=== PATIENT | female | born 1995 | race African-American/Black ===

== ENCOUNTER 2017-04-26 16:21 | Emergency (ER) | payer OTHER ==
[2017-04-26 16:28] VITALS: BP 120/80; BMI 29.4
--- NOTE | 2017-04-26 17:58 | DR.GENAD ---
HPI - PCP Primary Care Physician: HERI - HPI Comment HPI Comment: PAIN ASSOCIATED WITH NAUSEA AND VOMITING. HAD LOOSE STOOL NONE SINCE YESTERDAY. NO FEVER OR DYSURIA. - Complaint/Symptoms Chief Complaint Doctors Comments: ABDOMINAL PAIN TIMES 3 DAYS. Chief Complaint:: "STOMACH HURTING. EVERY THING I EAT OR DRINK I VOMIT OR POOP IT OUT" Self Treatment fo Chief Complaint: PLENTY OF FLUIDS - Nurses notes reviewed Nurses Notes Review: Yes - Source History Provided: Patient - Mode of Arrival Mode of Arrival: Ambulatory - Timing Onset of Chief Complaint: 04/23/17 Came on: Suddenly - Duration Duration: Constant Duration: Days - Severity Severity: Moderate PMH - PMH Past Medical History: No Past Medical History: Headaches Past Surgical History: No Surgical History: Tonsillectomy - Family History History of Family Medical Conditions: Yes Family Medical History: Diabetes Mellitus, Hypertension - Social History Does any household member use tobacco: No Alcohol Use: None Do you use any recreational Drugs:: No Lives With: Alone Lives Where: Home - infectious screening In the last 2 months have you had wt loss of >10#?: NO Have you had fever, night sweats or hemotysis?: No Have you traveled outside the country in the last 6 months?: No Isolation: Standard ROS - Review of Systems Constitutional: Weakness, Fatigue Eyes: No Symptoms Reported. negative: Eye Pain, Discharge ENTM: No Symptoms Reported Respiratoy: No Symptoms Reported Cardiovascular: No Symptoms Reported Gastrointestinal/Abdominal: Abdominal Pain, Diarrhea, Nausea, Vomiting Genitourinary: No Symptoms Reported. negative: Dysuria, Frequency, Hematuria Neurological: Weakness, Dizziness Musculoskeletal: Muscle Pain Integumentary: No Symptoms Reported Hematologic/Lymphatic: No Symptoms Reported Endocrine: No Symptoms Reported All Other Systems: Reviewed and Negative PE - Vital Signs Vitals: Temperature 98.6 F Pulse Rate 110 Respiratory Rate 20 Blood Pressure 120/80 O2 Sat by Pulse Oximetry 100 - General Limitations: No Limitations General Appearance: Alert - Head Head Exam: Normal Inspection - Eyes Eye exam: Normal Appearance, PERRL, EOMI - ENT ENT Exam: Normal External Ear Exam External Ear Exam: Normal External Inspection TM/Canal Exam: Bilateral Normal Nose Exam: Normal Nose Exam Mouth Exam: Normal Inspection Throat Exam: Normal Inspection - Neck Neck Exam: Normal Inspection - Chest Chest Inspection: Symmetric Chest Wall Rise - Respiratory Respiratory Exam: Normal Lung Sounds Bilat Respiratory Exam: Bilateral Clear to Auscultation - Cardiovascular Cardiovascular Exam: Regular Rate, Normal Rhythm, Normal Heart Sounds - Abdominal Exam Abdominal Exam: Normal Bowel Sounds, Soft, Tenderness Abdominal Tenderness: RLQ, LLQ, Suprapubic, Moderate - Extremities Extremities Exam: Normal Inspection - Back Back Exam: Normal Inspection - Neurologic Neurological Exam: Alert, Oriented X3, CN II-XII Intact, Normal Gait, Reflexes Normal. negative: Motor Sensory Deficit - Psychiatric Psychiatric Exam: Normal Affect, Normal Mood - Skin Skin Exam: Normal Color MDM - Differential Diagnosis Differential Diagnosis: ABDOMINAL PAIN Course - Treatment Treatment: SEE ORDERS. PREG TEST POSITIVE. OB US 33 WEEKS UNKNOWN TO PATIENT. OB EVALUATED AND DISCHARGE PATIENT HOME. - Consultation Consultation Comments: OB CONSULT. OB NURSE IN ED EVALUATING PATIENT. - Education/Counseling Education/Counseling: Patient, Education Educated On: Diagnosis ROR - Labs Reviewed Laboratory Results Reviewed?: Yes Result Diagrams: 04/26/17 18:30 04/26/17 18:30 Laboratory: WBC 7.7 X10^3/uL (3.6-10.0) 04/26/17 18:30 RBC 4.47 X10^6/uL (3.5-5.4) 04/26/17 18:30 Hgb 13.4 g/dL (12.0-16.0) 04/26/17 18:30 Hct 38.6 % (36.0-47.0) 04/26/17 18:30 MCV 86.5 fL (80.0-100.0) 04/26/17 18:30 MCH 29.9 pg (27.0-34.0) 04/26/17 18:30 MCHC 34.6 g/dL (33.0-35.0) 04/26/17 18:30 RDW 13.3 % (11.6-16.5) 04/26/17 18:30 Plt Count 256 X10^3/uL (150.0-450.0) 04/26/17 18:30 MPV 8.2 fL (7.4-11.0) 04/26/17 18:30 Neut % 76.3 % (42.0-75.0) H 04/26/17 18:30 Lymph % 10.7 % (21.0-51.0) L 04/26/17 18:30 Baldwin % 12.4 % (0.0-13.0) 04/26/17 18:30 Eos % 0.4 % (0.9-2.9) L 04/26/17 18:30 Baso % 0.2 % (0.2-1.0) 04/26/17 18:30 Neut # 5.9 x10^3/uL (2.2-4.8) H 04/26/17 18:30 Lymph # 0.8 X10^3/uL (1.3-2.9) L 04/26/17 18:30 Baldwin # 1.0 x10^3/uL (0.3-0.8) H 04/26/17 18:30 Eos # 0.0 x10^3/uL (0.0-0.2) 04/26/17 18:30 Baso # 0.0 X10^3/uL (0.0-0.1) 04/26/17 18:30 Absolute Nucleated RBC 0.1 /100WBC 04/26/17 18:30 INR Target Range - 04/26/17 18:30 INR 1.01 (0.8-1.3) 04/26/17 18:30 PTT 28.9 SECONDS (22.9-36.5) 04/26/17 18:30 PTT Comment - 04/26/17 18:30 Fibrinogen 496 mg/dL (239-489) H 04/26/17 18:30 Sodium 137 mmol/L (136-145) 04/26/17 18:30 Corrected Sodium TNP 04/26/17 18:30 Potassium 3.2 mmol/L (3.5-5.1) L 04/26/17 18:30 Chloride 105 mmol/L (98-107) 04/26/17 18:30 Carbon Dioxide 21.7 mmol/L (21-32) 04/26/17 18:30 BUN 8 mg/dL (7-18) 04/26/17 18:30 Creatinine 0.67 mg/dL (0.55-1.02) 04/26/17 18:30 Est GFR (MDRD) Af Amer > 60 (>60) 04/26/17 18:30 Est GFR (MDRD) Non-Af > 60 (>60) 04/26/17 18:30 Glucose 80 mg/dL (65-99) 04/26/17 18:30 Uric Acid 6.6 mg/dL (2.6-6.0) H 04/26/17 18:30 Calcium 9.1 mg/dL (8.5-10.1) 04/26/17 18:30 Corrected Calcium 10.1 mg/dL (8.5-10.1) 04/26/17 18:30 Total Bilirubin 0.50 mg/dL (0.2-1.0) 04/26/17 18:30 AST 87 Units/L (15-37) H 04/26/17 18:30 ALT 94 Units/L (12-78) H 04/26/17 18:30 Alkaline Phosphatase 167 Units/L (46-116) H 04/26/17 18:30 Total Protein 7.3 g/dL (6.4-8.2) 04/26/17 18:30 Albumin 2.8 g/dL (3.4-5.0) L 04/26/17 18:30 Globulin 4.5 g/dL (2.5-4.5) 04/26/17 18:30 Albumin/Globulin Ratio 0.6 Ratio (1.1-2.1) L 04/26/17 18:30 Amylase 50 Units/L (25-115) 04/26/17 18:30 Lipase 198 Units/L (73-393) 04/26/17 18:30 HCG, Qual Positive >10 mIU/mL 04/26/17 18:30 HCG, Quant 10908 mIU/mL (0-6) H 04/26/17 18:30 Specimen Type Clean catch urine 04/26/17 21:50 Urine Color Yeimy (YELLOW) 04/26/17 21:50 Urine Appearance Hazy (CLEAR) 04/26/17 21:50 Urine pH 6.0 (5.0 - 8.0) 04/26/17 21:50 Ur Specific [place] 1.025 (1.000-1.030) 04/26/17 21:50 Urine Protein 2+ (NEGATIVE) 04/26/17 21:50 Urine Glucose (UA) Negative (NEGATIVE) 04/26/17 21:50 Urine Ketones 4+ (NEGATIVE) 04/26/17 21:50 Urine Occult Blood 1+ (NEGATIVE) 04/26/17 21:50 Urine Nitrite Negative (NEGATIVE) 04/26/17 21:50 Urine Bilirubin 1+ (NEGATIVE) 04/26/17 21:50 Urine Urobilinogen 3+ (NORMAL) 04/26/17 21:50 Ur Leukocyte Esterase 3+ (NEGATIVE) 04/26/17 21:50 Urine RBC 2-6 /HPF (NEGATIVE) 04/26/17 21:50 Urine WBC 2-6 /HPF (NEGATIVE) 04/26/17 21:50 Ur Squamous Epith Cells Numerous /HPF (NEGATIVE) 04/26/17 21:50 Calcium Oxalate Crystal Moderate /HPF (NEGATIVE) 04/26/17 21:50 Urine Bacteria 1+ /HPF (NEGATIVE) 04/26/17 21:50 Ur Culture Indicated? No/not indicated 04/26/17 21:50 H. pylori IgG Antibody Negative (NEGATIVE) 04/26/17 18:30 - XRAY XRAY Interpreted by: Radiologist XRAY Findings: REPORT DISCUSS WITH PATIENT. - Diagnosis Discharge Problem: Abdominal pain, Third trimester - Discharge Plan Disposition: HOME, SELF-CARE Condition: Stable Prescriptions: Promethazine HCl [PHENERGAN TAB 25 MG *] 25 mg PO Q6H PRN #20 tab PRN Reason: Nausea/Vomiting - Follow ups/Referrals Follow ups/Referrals: JUSTINE SUMNER [Primary Care Provider] - 3 days - Instructions Instructions: Third Trimester of , [id number] Additional Instructions: FOLLOW UP WITH OBGYN MARCUS. RETURN TO ER IF CONTRACTIONS, BLEEDING OR RUPTURE OF MEMBRANES HAPPENS.
[2017-04-26 18:43] LABS: BASOPHILS % (AUTO) 0.2 % (0.2-1.0); EOSINOPHILS % (AUTO) 0.4 % (0.9-2.9); HEMATOCRIT 38.6 % (36.0-47.0); HEMOGLOBIN 13.4 g/dL (12.0-16.0); LYMPHOCYTES # (AUTO) 0.8 X10^3/uL (1.3-2.9); LYMPHOCYTES % (AUTO) 10.7 % (21.0-51.0); MEAN CORPUSCULAR HEMOGLOBIN 29.9 pg (27.0-34.0); MEAN CORPUSCULAR HGB CONC 34.6 g/dL (33.0-35.0); MEAN CORPUSCULAR VOLUME 86.5 fL (80.0-100.0); MEAN PLATELET VOLUME 8.2 fL (7.4-11.0); MONOCYTES % (AUTO) 12.4 % (0.0-13.0); NEUTROPHILS # (AUTO) 5.9 x10^3/uL (2.2-4.8); NEUTROPHILS % (AUTO) 76.3 % (42.0-75.0); PLATELET COUNT 256 X10^3/uL (150.0-450.0); RED BLOOD COUNT 4.47 X10^6/uL (3.5-5.4); RED CELL DISTRIBUTION WIDTH 13.3 % (11.6-16.5); WHITE BLOOD COUNT 7.7 X10^3/uL (3.6-10.0)
[2017-04-26 18:49] LABS: SERUM PREGNANCY TEST, QUAL POSITIVE >10 mIU/mL
[2017-04-26 18:55] LABS: ALANINE AMINOTRANSFERASE 94 Units/L (12-78); ALBUMIN 2.8 g/dL (3.4-5.0); ALKALINE PHOSPHATASE 167 Units/L (46-116); AMYLASE 50 Units/L (25-115); ASPARTATE AMINO TRANSFERASE 87 Units/L (15-37); BLOOD UREA NITROGEN 8 mg/dL (7-18); CALCIUM 9.1 mg/dL (8.5-10.1); CARBON DIOXIDE 21.7 mmol/L (21-32); CHLORIDE 105 mmol/L (98-107); COR CA(FOR HYPOALB) 10.1 mg/dL (8.5-10.1); CREATININE 0.67 mg/dL (0.55-1.02); LIPASE 198 Units/L (73-393); SODIUM 137 mmol/L (136-145); TOTAL PROTEIN 7.3 g/dL (6.4-8.2); eGFR BLACK RACES > 60 (>60); eGFR NON BLACK RACES > 60 (>60)
--- NOTE | 2017-04-26 22:07 | US ---
Exam: Transabdominal pelvic ultrasound History: Pelvic pain, Comparison: No prior ultrasound for comparison Technique: Grayscale, color, and power Doppler imaging of the pelvis was performed using a transabdom inal approach. Findings: There is a single intrauterine fetus. heart rate is 146 beats per min. Estimated fet al weight is 2361 g. Estimated gestational age is 33 weeks 6 days. No hemorrhage. No abnormal mass or fluid collection. Conclusion: Normal appearing single intrauterine fetus. Reported By:
[2017-04-26 22:14] LABS: BILIRUBIN,URINE 1+ (NEGATIVE); BLOOD/HEMOGLOBIN,URINE 1+ (NEGATIVE); GLUCOSE, URINE NEGATIVE (NEGATIVE); KETONES,URINE 4+ (NEGATIVE); LEUKOCYTE ESTERASE ,URINE 3+ (NEGATIVE); NITRITES,URINE NEGATIVE (NEGATIVE); PROTEIN,URINE 2+ (NEGATIVE); UROBILINOGEN,URINE 3+ (NORMAL)
[2017-04-26 22:26] LABS: APPEARANCE,URINE HAZY (CLEAR); BACTERIA,URINE 1+ /HPF (NEGATIVE); CALCIUM OXALATE CRYSTALS,UR MODERATE /HPF (NEGATIVE); COLOR,URINE AMBER (YELLOW); SQUAMOUS EPITHELIAL CELL,UR NUMEROUS /HPF (NEGATIVE)
[2017-04-26] MEDS ORDERED: PHENERGAN TAB 25 MG PO ONE (22:58)
== END 2017-04-26 23:17 | disposition home or self-care (01) ==
LOC: ER 16:35
DX: R10.31 Right lower quadrant pain (principal); Z3A.33 33 weeks gestation of pregnancy
CPT/HCPCS: 36415; 76815; 80053; 81001; 82150; 83690; 84550; 84702; 84703; 85025; 85384; 85610; 85730; 86677; 99283; Q0169

== ENCOUNTER 2017-05-28 19:31 | Inpatient (IN) | payer OTHER ==
[2017-05-28 19:44] VITALS: BMI 29.1
[2017-05-28] MEDS ORDERED: D5 1/2 NS 1000 ML 1,000 ML IV ONE (19:48)
[2017-05-28 20:26] LABS: BASOPHILS % (AUTO) 0.3 % (0.2-1.0); EOSINOPHILS % (AUTO) 0.2 % (0.9-2.9); HEMATOCRIT 34.8 % (36.0-47.0); HEMOGLOBIN 11.8 g/dL (12.0-16.0); LYMPHOCYTES # (AUTO) 2.1 X10^3/uL (1.3-2.9); LYMPHOCYTES % (AUTO) 14.6 % (21.0-51.0); MEAN CORPUSCULAR HEMOGLOBIN 28.9 pg (27.0-34.0); MEAN CORPUSCULAR HGB CONC 33.8 g/dL (33.0-35.0); MEAN CORPUSCULAR VOLUME 85.5 fL (80.0-100.0); MEAN PLATELET VOLUME 8.8 fL (7.4-11.0); MONOCYTES % (AUTO) 7.2 % (0.0-13.0); NEUTROPHILS # (AUTO) 11.1 x10^3/uL (2.2-4.8); NEUTROPHILS % (AUTO) 77.7 % (42.0-75.0); PLATELET COUNT 278 X10^3/uL (150.0-450.0); RED BLOOD COUNT 4.07 X10^6/uL (3.5-5.4); RED CELL DISTRIBUTION WIDTH 14.2 % (11.6-16.5); WHITE BLOOD COUNT 14.3 X10^3/uL (3.6-10.0)
[2017-05-28 20:31] LABS: BLOOD UREA NITROGEN 10 mg/dL (7-18); CALCIUM 8.7 mg/dL (8.5-10.1); CARBON DIOXIDE 22.6 mmol/L (21-32); CHLORIDE 103 mmol/L (98-107); COR NA(FOR HYPERGLY) 135 mmol/L (136-145); CREATININE 0.68 mg/dL (0.55-1.02); SODIUM 135 mmol/L (136-145); eGFR BLACK RACES > 60 (>60); eGFR NON BLACK RACES > 60 (>60)
[2017-05-28] MEDS ORDERED: D5 1/2 NS 1L W PITOCIN 20 UNITS/L 20 UNITS/1,000 ML BAG IV ONE (20:31)
[2017-05-28] MEDS ORDERED: PITOCIN ONE (20:31)
[2017-05-28] MEDS ORDERED: MOTRIN TAB 800 MG PO PRN (20:49)
[2017-05-28] MEDS ORDERED: PHENERGAN INJ 25 MG IV PRN ×2 (20:49→21:34)
[2017-05-28] MEDS ORDERED: D5 1/2 NS 1000 ML 1,000 ML with PITOCIN 20 UNITS IV SCH ×2 (21:00)
[2017-05-28] MEDS ORDERED: AMBIEN PO PRN (21:34)
[2017-05-28] MEDS ORDERED: ADACEL TDaP IM ONE (21:34)
[2017-05-28] MEDS ORDERED: DERMOPLAST SPRAY TOP PRN (21:34)
[2017-05-28] MEDS ORDERED: MILK OF MAGNESIA PO PRN (21:34)
[2017-05-28 21:50] LABS: RUBELLA IGG ANTIBODY NEGATIVE (POSITIVE)
[2017-05-28] MEDS: MOTRIN TAB 800 MG PO PRN (22:05)
[2017-05-29] MEDS ORDERED: D5 1/2 NS 1000 ML 1,000 ML IV ONE (00:26)
[2017-05-29] MEDS: ZANTAC PO SCH ×3 (00:42→23:34)
[2017-05-29 05:38] LABS: HEMATOCRIT 31.2 % (36.0-47.0); HEMOGLOBIN 10.6 g/dL (12.0-16.0)
[2017-05-29] MEDS: D5 1/2 NS 1000 ML 1,000 ML with PITOCIN 20 UNITS IV SCH ×2 (06:03)
[2017-05-29] MEDS: MOTRIN TAB 800 MG PO PRN ×2 (08:02→23:34)
[2017-05-29] MEDS: PRENATAL PLUS PO SCH (08:02)
--- NOTE | 2017-05-29 11:15 | DR.GENAD ---
HPI - PCP Primary Care Physician: NFD - Complaint/Symptoms Chief Complaint:: PT IS COMPLAINING OF HURTING IN ABD ASKED IF SHE WAS PT STATES" I DON'T KNOW I BEEN HAVING PERIODS" LOOKED BACK ON CHART PT HAS POSITIVE TEST LAST MONTH - Source History Provided: Patient - Mode of Arrival Mode of Arrival: Ambulatory - Timing Onset of Chief Complaint: 05/28/17 PMH - PMH Past Medical History: Yes Past Medical History: Headaches Past Surgical History: Yes Surgical History: Tonsillectomy - Family History History of Family Medical Conditions: Yes Family Medical History: Diabetes Mellitus, Hypertension - Social History Does patient currently use any type of tobacco product: No Have you used tobacco products in the last 12 months: No Type of Tobacco Use: None Does any household member use tobacco: No Alcohol Use: None Do you use any recreational Drugs:: No Lives With: Alone Lives Where: Home - infectious screening In the last 2 months have you had wt loss of >10#?: NO Have you had fever, night sweats or hemotysis?: No Have you traveled outside the country in the last 6 months?: No Isolation: Standard PE - Vital Signs Vitals: Temperature 98.1 F Pulse Rate 70 Respiratory Rate 18 Blood Pressure 156/92 O2 Sat by Pulse Oximetry 99 ROR - Labs Reviewed Result Diagrams: 05/29/17 04:58 05/28/17 20:14 Laboratory: WBC 14.3 X10^3/uL (3.6-10.0) H 05/28/17 20:14 RBC 4.07 X10^6/uL (3.5-5.4) 05/28/17 20:14 Hgb 10.6 g/dL (12.0-16.0) L 05/29/17 04:58 Hct 31.2 % (36.0-47.0) L 05/29/17 04:58 MCV 85.5 fL (80.0-100.0) 05/28/17 20:14 MCH 28.9 pg (27.0-34.0) 05/28/17 20:14 MCHC 33.8 g/dL (33.0-35.0) 05/28/17 20:14 RDW 14.2 % (11.6-16.5) 05/28/17 20:14 Plt Count 278 X10^3/uL (150.0-450.0) 05/28/17 20:14 MPV 8.8 fL (7.4-11.0) 05/28/17 20:14 Neut % 77.7 % (42.0-75.0) H 05/28/17 20:14 Lymph % 14.6 % (21.0-51.0) L 05/28/17 20:14 Evangeline % 7.2 % (0.0-13.0) 05/28/17 20:14 Eos % 0.2 % (0.9-2.9) L 05/28/17 20:14 Baso % 0.3 % (0.2-1.0) 05/28/17 20:14 Neut # 11.1 x10^3/uL (2.2-4.8) H 05/28/17 20:14 Lymph # 2.1 X10^3/uL (1.3-2.9) 05/28/17 20:14 Evangeline # 1.0 x10^3/uL (0.3-0.8) H 05/28/17 20:14 Eos # 0.0 x10^3/uL (0.0-0.2) 05/28/17 20:14 Baso # 0.0 X10^3/uL (0.0-0.1) 05/28/17 20:14 Absolute Nucleated RBC 0.0 /100WBC 05/28/17 20:14 Sodium 135 mmol/L (136-145) L 05/28/17 20:14 Corrected Sodium 135 mmol/L (136-145) L 05/28/17 20:14 Potassium 3.7 mmol/L (3.5-5.1) 05/28/17 20:14 Chloride 103 mmol/L (98-107) 05/28/17 20:14 Carbon Dioxide 22.6 mmol/L (21-32) 05/28/17 20:14 BUN 10 mg/dL (7-18) 05/28/17 20:14 Creatinine 0.68 mg/dL (0.55-1.02) 05/28/17 20:14 Est GFR (MDRD) Af Amer > 60 (>60) 05/28/17 20:14 Est GFR (MDRD) Non-Af > 60 (>60) 05/28/17 20:14 Glucose 119 mg/dL (65-99) H 05/28/17 20:14 Calcium 8.7 mg/dL (8.5-10.1) 05/28/17 20:14 Urine Opiates Screen Negative (NEG=<300) 05/28/17 22:34 Urine Methadone Screen Negative (NEG=<300) 05/28/17 22:34 Ur Barbiturates Screen Negative (NEG=<200) 05/28/17:34 Ur Phencyclidine Scrn Negative (NEG=<25) 05/28/17 22:34 Ur Amphetamines Screen Negative (NEG=<1000) 05/28/17 22:34 U Benzodiazepines Scrn Negative (NEG=<200) 05/28/17:34 Urine Cocaine Screen Negative (NEG=<300) 05/28/17 22:34 U Marijuana (THC) Screen Negative (NEG=<50) 05/28/17 22:34 RPR Nonreactive (NONREACTIVE) 05/28/17 20:14 HIV-1 Ab Rapid Screen Negative (NEGATIVE) 05/28/17 20:14 Rubella IgG Antibody Negative (POSITIVE) A 05/28/17 20:14 Tissue Pathology To follow 05/28/17 22:04 Blood Type B POSITIVE 05/28/17 20:14 Antibody Screen Negative 05/28/17 20:14 - Discharge Plan Disposition: 09 ADMITTED INPATIENT Condition: Stable - Follow ups/Referrals - Instructions
[2017-05-30] MEDS: D5 1/2 NS 1000 ML 1,000 ML with PITOCIN 20 UNITS IV SCH ×2 (01:49)
[2017-05-30] MEDS ORDERED: DEPO-PROVERA CONTRACEPTIVE INJ IM ONE ×2 (07:33→10:48)
[2017-05-30] MEDS: PRENATAL PLUS PO SCH (09:00)
[2017-05-30] MEDS: ZANTAC PO SCH ×2 (09:00→21:23)
[2017-05-31 08:30] VITALS: BP 140/88
[2017-05-31] MEDS: PRENATAL PLUS PO SCH (09:40)
[2017-05-31] MEDS ORDERED: ADACEL TDaP IM ONE (10:27)
== END 2017-05-31 11:30 | disposition home or self-care (01) | DRG 775 ==
LOC: ER 19:31 → LD 20:15 → MED/SURG 20:50
PROVIDERS: ADMIT Specialist; ATTEND Specialist
PROC: 10E0XZZ Delivery of Products of Conception, External Approach (ICD-10-PCS; principal; 2017-05-31)
PROC: 3E0234Z Introduction of Serum, Toxoid and Vaccine into Muscle, Percutaneous Approach (ICD-10-PCS; 2017-05-31)
DX: O99.824 Streptococcus B carrier state complicating childbirth (principal); Z37.0 Single live birth; O09.33 Supervision of pregnancy with insufficient antenatal care, third trimester; Z3A.37 37 weeks gestation of pregnancy; Z23 Encounter for immunization
CPT/HCPCS: 36415; 59409; 80048; 80307; 83020; 85014; 85018; 85025; 86592; 86701; 86762; 86850; 86900; 86901; 87340; 96365; 99284; A4216; A4222; S0197; G0434; J1050; J2590; J7042

== ENCOUNTER 2019-10-25 03:29 | Inpatient (IN) ==
[2019-10-25 03:47] VITALS: BMI 29.9
[2019-10-25 04:06] LABS: AMNISURE ROM TEST THERE IS A RUPTURE (NO RUPTURE)
[2019-10-25 04:31] LABS: BASOPHILS # (AUTO) 0.1 X10^3/uL (0.0-0.1); BASOPHILS % (AUTO) 0.7 % (0.2-1.0); EOSINOPHILS # (AUTO) 0.1 x10^3/uL (0.0-0.2); EOSINOPHILS % (AUTO) 0.8 % (0.9-2.9); HEMATOCRIT 35.7 % (36.0-47.0); HEMOGLOBIN 12.3 g/dL (12.0-16.0); LYMPHOCYTES # (AUTO) 2.1 X10^3/uL (1.3-2.9); LYMPHOCYTES % (AUTO) 17.9 % (21.0-51.0); MEAN CORPUSCULAR HGB CONC 34.3 g/dL (33.0-35.0); MEAN CORPUSCULAR VOLUME 90.1 fL (80.0-100.0); MEAN PLATELET VOLUME 9.7 fL (7.4-11.0); MONOCYTES # (AUTO) 0.9 x10^3/uL (0.3-0.8); MONOCYTES % (AUTO) 7.6 % (0.0-13.0); NEUTROPHILS # (AUTO) 8.4 x10^3/uL (2.2-4.8); PLATELET COUNT 252 X10^3/uL (150.0-450.0); RED BLOOD COUNT 3.96 X10^6/uL (3.5-5.4); RED CELL DISTRIBUTION WIDTH 13.8 % (11.6-16.5); WHITE BLOOD COUNT 11.5 X10^3/uL (3.6-10.0)
[2019-10-25 04:37] LABS: BLOOD UREA NITROGEN 13 mg/dL (7-18); CALCIUM 8.9 mg/dL (8.5-10.1); CARBON DIOXIDE 23.3 mmol/L (21-32); CHLORIDE 104 mmol/L (98-107); CREATININE 0.49 mg/dL (0.55-1.02); SODIUM 137 mmol/L (136-145); eGFR NON BLACK RACES > 60 (>60)
[2019-10-25] MEDS ORDERED: REGLAN INJ 10 MG VIAL IVP PRN ×3 (04:50→11:21)
[2019-10-25] MEDS ORDERED: PITOCIN IVP ONE ×2 (04:50→16:29)
[2019-10-25] MEDS ORDERED: D5LR 1L W PITOCIN 10 UNITS/L 10 UNITS/1,000 ML BAG IV PRN (04:50)
[2019-10-25] MEDS ORDERED: PHENERGAN INJ 25 MG IM PRN ×2 (04:50→09:00)
[2019-10-25] MEDS ORDERED: NUBAIN INJ 200 MG VIAL MULTIDOSE IVP PRN (04:50)
[2019-10-25] MEDS ORDERED: D5 1/2 NS 1000 ML 1,000 ML IV SCH (05:00)
[2019-10-25] MEDS ORDERED: PITOCIN ONE ×3 (05:02→16:14)
[2019-10-25] MEDS ORDERED: D5 1/2 NS 1000 ML 1,000 ML IV ONE ×2 (05:02→16:10)
[2019-10-25] MEDS ORDERED: D5 1/2 NS 1L W PITOCIN 20 UNITS/L 20 UNITS/1,000 ML BAG IV ONE ×2 (05:02→07:40)
[2019-10-25] MEDS ORDERED: D5LR 1L W PITOCIN 10 UNITS/L 10 UNITS/1,000 ML BAG IV ONE (05:02)
[2019-10-25] MEDS ORDERED: LR 1000 ML IV 1,000 ML IV ONE (07:40)
[2019-10-25] MEDS ORDERED: XYLOCAINE-MPF 1% ONE (07:40)
[2019-10-25] MEDS ORDERED: DILAUDID INJ ONE (07:40)
[2019-10-25] MEDS ORDERED: ANCEF 1 GRAM IV PREMIX* 1 G/50 ML BAG IV ONE (08:17)
[2019-10-25] MEDS ORDERED: DILAUDID INJ IVP PRN (09:00)
[2019-10-25] MEDS ORDERED: BENADRYL INJ 50 MG VIAL IVP PRN ×2 (09:00→11:21)
[2019-10-25] MEDS ORDERED: ZOFRAN INJ 4 MG VIAL IVP PRN ×2 (09:00→11:21)
[2019-10-25] MEDS ORDERED: HYPERRHO S/D (or RHOGAM) IM PRN (10:06)
[2019-10-25] MEDS ORDERED: ADACEL or BOOSTRIX TDaP VACCINE IM ONE (10:06)
[2019-10-25] MEDS: TORADOL 30 MG VIAL IVP SCH ×2 (11:07→16:31)
[2019-10-25] MEDS ORDERED: NARCAN INJ IVP PRN (11:21)
[2019-10-25] MEDS ORDERED: PERCOCET TAB 5/325 MG PO PRN (11:21)
[2019-10-25] MEDS ORDERED: NS IRRIGATION 1000 ML ONE (14:04)
[2019-10-25] MEDS ORDERED: NEO-SYNEPHRINE INJ ONE (14:14)
[2019-10-25] MEDS ORDERED: DIPRIVAN VIAL ONE (14:14)
[2019-10-25] MEDS ORDERED: TORADOL 30 MG VIAL ONE (14:14)
[2019-10-25] MEDS ORDERED: MARCAINE SPINAL ONE (14:14)
[2019-10-25] MEDS ORDERED: ZOFRAN INJ 4 MG VIAL ONE (14:14)
[2019-10-25] MEDS: D5 1/2 NS 1000 ML 1,000 ML IV SCH (17:25)
[2019-10-26] MEDS: TORADOL 30 MG VIAL IVP SCH ×2 (04:43→05:33)
[2019-10-26] MEDS: D5 1/2 NS 1000 ML 1,000 ML IV SCH (04:43)
[2019-10-26 06:00] LABS: HEMOGLOBIN 11.7 g/dL (12.0-16.0)
[2019-10-26] MEDS ORDERED: TORADOL 30 MG VIAL ONE (07:06)
[2019-10-26] MEDS: TORADOL 30 MG VIAL IVP PRN ×2 (07:09→22:50)
[2019-10-26] MEDS: PRENATAL PLUS PO SCH (08:35)
[2019-10-26] MEDS ORDERED: TORADOL 30 MG VIAL IM PRN (09:30)
--- NOTE | 2019-10-26 11:20 | NOTE.PROBC ---
Progress Note OB-C/S Subjective Data Subjective: No complaints, decreased lochia. Tolerating {regular diet. No N/V. Ambulating well. Bonilla draining well. Pain under good control with toradol. Objective Data Result Diagrams: 10/26/19 05:35 10/25/19 04:15 Objective Data: CV= RRR no MRG Lungs=CTA Bilaterally Abd=(+) BS, soft, ND, appropriately tender near incision. Bandage removed. Incision clean/dry/intact, no erythema, no bleeding, no discharge. Dermabond/Stitches intact. Fundus firm/NT/ at 2 cm below umbilicus. Ext= No edema, NT, No Cords. Graduated Compression Stockings/Sequential Compression Devices Bilaterally. Assessment Assessment: routine postop care
[2019-10-27] MEDS: D5 1/2 NS 1000 ML 1,000 ML IV SCH (01:51)
[2019-10-27] MEDS: PRENATAL PLUS PO SCH (08:09)
[2019-10-27 08:11] VITALS: BP 110/72
== END 2019-10-27 11:45 | disposition home or self-care (01) | DRG 788 ==
LOC: ER 03:31 → LD 04:41 → MED/SURG 09:33
PROVIDERS: ADMIT Specialist; ATTEND Specialist
DX: O77.0 Labor and delivery complicated by meconium in amniotic fluid; Z23 Encounter for immunization; O62.0 Primary inadequate contractions; Z3A.39 39 weeks gestation of pregnancy; Z37.0 Single live birth
CPT/HCPCS: 36415; 80048; 84112; 85014; 85018; 85025; 86592; 86850; 86900; 86901; 90715; 96365; 99284; A4216; A4222; J0690; J1170; J1200; J1885; J2370; J2405; J2590; J2704; J2765; J7120; S0197; S5010

== ENCOUNTER 2021-09-16 12:03 | Inpatient (IN) ==
[2021-09-20] MEDS ORDERED: D5 1/2 NS 1,000 ML 1,000 ML IV ONE (06:35)
[2021-09-20] MEDS ORDERED: PITOCIN ONE (06:35)
[2021-09-20] MEDS ORDERED: D5 1/2 NS 1,000 mL + PITOCIN 20 UNITS/L IV 20 UNITS/1,000 ML BAG IV ONE (06:36)
[2021-09-20] MEDS ORDERED: BETADINE SOLN ONE (06:36)
[2021-09-20] MEDS ORDERED: D5 LR + PITOCIN 10 UNITS/L 10 UNITS/1,000 ML BAG IV ONE (06:36)
[2021-09-20] MEDS: D5 1/2 NS 1,000 ML 1,000 ML IV SCH ×2 (06:48→17:50)
--- NOTE | 2021-09-20 07:05 | DR.OB ---
OB Quick Note - Assessment/Plan Assessment/Plan: L&D 09/10/21 at 6:55am S-No complaint. O-Afebrile,VSS IAH=[id number] with good LTV, +accel, no decel. CTX=mild uterine irritability CVX=2cm/50%/-1/VTX AROM with clear fluid. IUPC and FSE placed. A-IUP at 39 2/7 weeks for induction P-Begin pitocin induction Anticipate and PP BTL if desired (pt. uncertain for now)
[2021-09-20] MEDS ORDERED: STADOL INJ IVP PRN (07:14)
[2021-09-20] MEDS ORDERED: REGLAN INJ 10 MG VIAL IVP PRN (07:14)
[2021-09-20] MEDS ORDERED: D5 LR + PITOCIN 10 UNITS/L 10 UNITS/1,000 ML BAG IV PRN (07:14)
[2021-09-20] MEDS ORDERED: MORPHINE SULFATE INJ 2 MG INJ IVP PRN (07:14)
[2021-09-20] MEDS ORDERED: NUBAIN INJ 200 MG VIAL MULTIDOSE IVP PRN (07:14)
[2021-09-20] MEDS ORDERED: PHENERGAN INJ 25 MG IM PRN ×2 (07:14→17:31)
[2021-09-20] MEDS ORDERED: PITOCIN IVP ONE (07:14)
[2021-09-20 07:42] LABS: BILIRUBIN,URINE NEGATIVE (NEGATIVE); BLOOD/HEMOGLOBIN,URINE 1+ (NEGATIVE); GLUCOSE, URINE NEGATIVE (NEGATIVE); KETONES,URINE 3+ (NEGATIVE); LEUKOCYTE ESTERASE ,URINE 1+ (NEGATIVE); NITRITES,URINE NEGATIVE (NEGATIVE); PH,URINE 6.5 (5.0 - 8.0); PROTEIN,URINE 1+ (NEGATIVE); UROBILINOGEN,URINE 2+ (NORMAL)
[2021-09-20 07:44] LABS: BASOPHILS % (AUTO) 0.3 % (0.2-1.0); EOSINOPHILS # (AUTO) 0.1 x10^3/uL (0.0-0.2); EOSINOPHILS % (AUTO) 1.3 % (0.9-2.9); HEMATOCRIT 34.8 % (36.0-47.0); HEMOGLOBIN 11.7 g/dL (12.0-16.0); LYMPHOCYTES # (AUTO) 2.2 X10^3/uL (1.3-2.9); LYMPHOCYTES % (AUTO) 26.7 % (21.0-51.0); MEAN CORPUSCULAR HGB CONC 33.7 g/dL (33.0-35.0); MEAN PLATELET VOLUME 8.3 fL (7.4-11.0); MONOCYTES # (AUTO) 0.8 x10^3/uL (0.3-0.8); MONOCYTES % (AUTO) 10.2 % (0.0-13.0); NEUTROPHILS # (AUTO) 5.1 x10^3/uL (2.2-4.8); NEUTROPHILS % (AUTO) 61.5 % (42.0-75.0); RED BLOOD COUNT 4.05 X10^6/uL (3.5-5.4); RED CELL DISTRIBUTION WIDTH 14.8 % (11.6-16.5); WHITE BLOOD COUNT 8.3 X10^3/uL (3.6-10.0)
[2021-09-20 07:51] LABS: APPEARANCE,URINE CLOUDY (CLEAR); BACTERIA,URINE 1+ /HPF (NEGATIVE); COLOR,URINE YELLOW (YELLOW); RBC,URINE 0-2 /HPF (0-3); SQUAMOUS EPITHELIAL CELL,UR NUMEROUS /HPF (NEGATIVE)
[2021-09-20 07:52] LABS: CALCIUM OXALATE CRYSTALS,UR FEW /HPF (NEGATIVE); TRICHOMONAS,URINE FEW /HPF (NEGATIVE)
[2021-09-20 07:53] LABS: ALANINE AMINOTRANSFERASE 42 Units/L (12-78); ALBUMIN 2.7 g/dL (3.4-5.0); ALKALINE PHOSPHATASE 160 Units/L (46-116); ASPARTATE AMINO TRANSFERASE 28 Units/L (15-37); BLOOD UREA NITROGEN 11 mg/dL (7-18); CALCIUM 8.4 mg/dL (8.5-10.1); CARBON DIOXIDE 21.1 mmol/L (21-32); CHLORIDE 104 mmol/L (98-107); COR CA(FOR HYPOALB) 9.4 mg/dL (8.5-10.1); CREATININE 0.56 mg/dL (0.55-1.02); SODIUM 138 mmol/L (136-145); TOTAL PROTEIN 6.6 g/dL (6.4-8.2); eGFR NON BLACK RACES > 60 (>60)
[2021-09-20] MEDS ORDERED: NAROPIN EPIDURAL 0.2% 100 ML ONE (11:23)
[2021-09-20] MEDS ORDERED: LR 1,000 ML IV 1,000 ML IV ONE ×2 (11:23→14:41)
[2021-09-20] MEDS ORDERED: STADOL INJ ONE (11:23)
[2021-09-20] MEDS ORDERED: FENTANYL VIAL INJ 100 mcg ONE (11:23)
--- NOTE | 2021-09-20 11:41 | DR.OB ---
OB Quick Note - Assessment/Plan Assessment/Plan: L&D 09/20/21 at 11:35pm Pitocin=14mu/min. S-No complaint except CTX. O-Afebrile,VSS [id number] with good LTV, +accel, no decel. CTX=q 2-3min., about 50-75mmHg CVX=4cm/75%/0 A-IUP at 39 2/7 weeks for induction () P-Cont. pitocin induction Anticipate
[2021-09-20] MEDS ORDERED: REGLAN INJ 10 MG VIAL ONE (12:55)
[2021-09-20] MEDS ORDERED: EPHEDRINE SULFATE INJ ONE (14:36)
--- NOTE | 2021-09-20 17:31 | DR.OB ---
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 Head delivered over intact perineum. No nuchal cord. Compound presentation with left hand at face noted. Nose and mouth bulb suctioned. Body delivered over intact perineum. Cord clamped x 2 and cut. handed to attendant. Cord sent for gases. Placenta delivered spontaneously / intact / 3 vessel cord. No CVX / vaginal / perineal tears noted. Viable male , VTX/OA, wt=7'9" and 8/9, stable to NBN. Mother stable to RR. PJS=022hr.
[2021-09-20] MEDS: D5 1/2 NS 1,000 ML 1,000 ML with PITOCIN 20 UNITS IV SCH ×2 (17:50)
[2021-09-20] MEDS ORDERED: AMBIEN PO PRN (18:20)
[2021-09-20] MEDS ORDERED: DERMOPLAST PAIN RELIEF SPRAY TOP PRN (18:20)
[2021-09-20] MEDS ORDERED: ADACEL or BOOSTRIX TDaP VACCINE IM ONE (18:20)
[2021-09-20] MEDS ORDERED: MILK OF MAGNESIA PO PRN (18:20)
[2021-09-20] MEDS: MOTRIN TAB 800 MG PO PRN (23:19)
[2021-09-21] MEDS: D5 1/2 NS 1,000 ML 1,000 ML with PITOCIN 20 UNITS IV SCH ×6 (02:23→18:09)
[2021-09-21 04:40] LABS: HEMATOCRIT 31.3 % (36.0-47.0); HEMOGLOBIN 10.7 g/dL (12.0-16.0)
[2021-09-21] MEDS ORDERED: DEPO-PROVERA CONTRACEPTIVE INJ IM ONE (07:20)
[2021-09-21] MEDS: MOTRIN TAB 800 MG PO PRN ×2 (08:40→16:46)
[2021-09-21] MEDS ORDERED: PRENATAL PLUS PO SCH (09:00)
[2021-09-21] MEDS ORDERED: PROTONIX TAB 40 MG PO SCH (09:00)
[2021-09-21 16:40] VITALS: BP 121/83
== END 2021-09-21 19:15 | disposition home or self-care (01) | DRG 807 ==
LOC: OBS 12:03 → LD 09-20 06:19 → MED/SURG 09-20 18:10
PROVIDERS: ADMIT Specialist; ATTEND Specialist